=== PATIENT | female | born 1995 | race African-American/Black ===

== ENCOUNTER 2016-06-25 15:54 | Emergency (ER) | payer BC, OTHER ==
[2016-06-25] MEDS ORDERED: LIDOCAINE 1% MDV 20 ML ONE (16:59)
[2016-06-25] MEDS ORDERED: CEFTRIAXONE 1 GM VIAL ONE (16:59)
== END 2016-06-25 19:24 | disposition home or self-care (01) ==
LOC: ER 15:54
DX: N30.00 Acute cystitis without hematuria (principal); Z79.899 Other long term (current) drug therapy
CPT/HCPCS: 81001; 81025; 87088; 87491; 87591; 87800; 96372